=== PATIENT | male | born 1945 | race Caucasian/White ===

== ENCOUNTER 2017-07-14 04:11 | Inpatient (IN) ==
[2017-07-14] MEDS ORDERED: HYDROmorphone 2 MG/1 ML VIAL IV STA (04:58)
[2017-07-14] MEDS ORDERED: KETOROLAC 30 MG/1 ML VIAL IV STA (04:58)
[2017-07-14] MEDS ORDERED: HYDROmorphone 2 MG/1 ML VIAL ONE (05:02)
[2017-07-14] MEDS ORDERED: KETOROLAC 30 MG/1 ML VIAL ONE (05:02)
[2017-07-14 05:12] LABS: Basophils # 0.1 10*3/uL (0.0-0.2); Basophils % 0.5 % (0.0-0.8); Eosinophils # 0.1 10*3/uL (0.0-0.87); Eosinophils % 0.8 % (0.00-10.9); Hematocrit 37.6 VOL% (42.0-52.0); Hemoglobin 13.2 GM/DL (14.0-18.0); Immature Granulocytes % 0.5 %; Immature Granulocytes Absolute 0.06 #; Lymphocytes % 8.6 % (21.2-54.2); Mean Corpuscular HGB Conc 35.1 GM/DL (32-36); Mean Corpuscular Hemoglobin 31 PG (27-34); Mean Corpuscular Volume 87.9 FL (87-102); Monocytes # 0.8 10*3/uL (0.11-0.8); Monocytes % 6.6 % (1.7-12.7); Neutrophils # 9.9 10*3/uL (1.4-7.4); Platelet Count 228 T/CUMM (130-400); Red Blood Count 4.28 MC/CUMM (3.8-5.5); Red Cell Distribution Width 11.9 % (9.3-17.3); White Blood Count 11.9 T/CUMM (4-12)
[2017-07-14 05:24] LABS: Apearance,Urine CLEAR (Clear); Bilirubin,Urine Negative (Negative); Blood, Urine Small mg/dL (Negative); Glucose,Urine (UA) Negative (Negative); Ketones,Urine 20 mg/dL (Negative); Mucus,Urine Occasional /LPF (Occasional); Nitrite,Urine Negative (Negative); Protein,Urine Negative; RBC,Urine 2 /HPF (0-4); Squamous Epithelial Cell,Urine Occasional /HPF (0-10); Urine Color Yellow (Yellow); Urine Specific Gravity 1.011 (1.001-1.035); Urine Urobilinogen < 2.0 EU/DL (0.2-1.0); WBC,Urine 2 /HPF (0-6)
[2017-07-14 05:32] LABS: Albumin 3.5 G/DL (3.4-5.0); Bilirubin,Total 1.1 MG/DL (0.2-1.0); Calcium 9.3 MG/DL (8.5-10.1); Total Protein 7.5 G/DL (6.4-8.3)
[2017-07-14 05:33] LABS: Osmolality,Calculated 278.5 MOS/KG (273-304); Potassium 3.8 MMOL/L (3.5-5.1)
[2017-07-14] MEDS ORDERED: ONDANSETRON 4 MG/2 ML VIAL IV PRN (05:40)
[2017-07-14] MEDS ORDERED: HYDROmorphone 2 MG/1 ML VIAL IV PRN (05:40)
[2017-07-14] MEDS ORDERED: cefTRIAXone 1,000 MG in SODIUM CHLORIDE 0.9% 100 ML IV ONE (08:14)
[2017-07-14] MEDS: SODIUM CHLORIDE 0.9% 1,000 ML IV SCH ×2 (08:16→15:25)
[2017-07-14] MEDS ORDERED: PANTOPRAZOLE 40 MG TABLET PO SCH (09:00)
[2017-07-14] MEDS ORDERED: MIDAZOLAM 2 MG/2 ML VIAL ONE (14:58)
[2017-07-14] MEDS ORDERED: fentaNYL 100 MCG/2 ML VIAL ONE (14:58)
[2017-07-14] MEDS ORDERED: ePHEDrine 50 MG/ML AMP ONE (14:59)
[2017-07-14] MEDS ORDERED: SEVOFLURANE 1 UNIT/15 MINUTE INH ONE (16:12)
[2017-07-14] MEDS ORDERED: ONDANSETRON 4 MG/2 ML VIAL ONE (16:12)
[2017-07-14] MEDS ORDERED: PROPOFOL 200 MG/20 ML VIAL IV ONE (16:12)
[2017-07-14] MEDS ORDERED: GLYCOPYRROLATE 0.4 MG/2 ML VIAL ONE (16:13)
[2017-07-14] MEDS ORDERED: ROCURONIUM 100 MG/10 ML VIAL IV ONE (16:13)
[2017-07-14] MEDS ORDERED: NEOSTIGMINE 10 MG/10 ML VIAL ONE (16:13)
[2017-07-14] MEDS ORDERED: LACTATED RINGERS 1,000 ML IV ONE (16:13)
[2017-07-14 16:34] VITALS: BP 161/79
[2017-07-17 12:51] LABS: Stone Source Passed Stone
== END 2017-07-14 19:00 | disposition home or self-care (01) | DRG 669 ==
LOC: N.ED 04:11 → N.EDINP 05:40 → N.5E 06:09
PROVIDERS: ADMIT Urology; ATTEND Urology